=== PATIENT | female | born 1945 | race Caucasian/White ===

== ENCOUNTER 2023-05-05 20:38 | Emergency (ER) | payer MEDICARE, OTHER ==
[2023-05-05 21:43] LABS: CORONAVIRUS COVID-19 NAA NEGATIVE (NEGATIVE); INFLUENZA A NAA NEGATIVE (NEGATIVE); INFLUENZA B NAA NEGATIVE (NEGATIVE)
== END 2023-05-05 22:02 | disposition home or self-care (01) ==
LOC: VM.ED 20:38
DX: J06.9 Acute upper respiratory infection, unspecified (principal); I12.9 Hypertensive chronic kidney disease with stage 1 through stage 4 chronic kidney disease, or unspecified chronic kidney disease; N18.9 Chronic kidney disease, unspecified; Z20.822 Contact with and (suspected) exposure to COVID-19; Z87.891 Personal history of nicotine dependence; Z79.82 Long term (current) use of aspirin; Z88.8 Allergy status to other drugs, medicaments and biological substances
CPT/HCPCS: 0240U; 71046; 87651; 99284

== ENCOUNTER → 2024-06-22 | Day surgery (SDC) | payer MEDICARE, OTHER ==
[~2024-06-22] MED LIST: Propofol 200 MG/20 ML SDV ONE; fentaNYL 100 MCG/2 ML SDV ONE
[2024-06-22] MEDS: Lactated Ringers 1,000 ML IV SCH (10:06)
== END ==
LOC: VM.SDS 09:31
PROVIDERS: ATTEND Student in an Organized Health Care Education/Training Program
DX: R19.5 Other fecal abnormalities (principal); D12.2 Benign neoplasm of ascending colon; I12.9 Hypertensive chronic kidney disease with stage 1 through stage 4 chronic kidney disease, or unspecified chronic kidney disease; N18.32 Chronic kidney disease, stage 3b; F33.0 Major depressive disorder, recurrent, mild; E78.2 Mixed hyperlipidemia; Z79.899 Other long term (current) drug therapy; Z87.891 Personal history of nicotine dependence
CPT/HCPCS: 00811; 45385; 88305; 99100; J2704; J3010; J7120

== ENCOUNTER 2025-04-30 17:05 | Inpatient (IN) | payer MEDICARE, OTHER ==
[2025-04-30] MEDS ORDERED: Sodium Chloride 0.9% 10 ML Syringe FLUSH PRN (18:52)
[2025-04-30] MEDS ORDERED: Acetaminophen/HYDROcodone 325-5 MG Tab PO PRN (18:52)
[2025-04-30] MEDS ORDERED: Albuterol HFA 18 Gm Inhaler INH PRN (19:22)
[2025-04-30] MEDS: metroNIDAZOLE/Normal Saline 500 MG in Premix Bag 1 BAG IV SCH (19:56)
[2025-05-01] MEDS: Ondansetron 4 MG Tab.DIS PO PRN (03:51)
[2025-05-01 06:59] LABS: BASOPHILS ABSOLUTE AUTO 0.0 x10^3/uL (0.0-0.2); BASOPHILS PERCENT AUTO 0.2 % (0.2-1.2); EOSINOPHILS ABSOLUTE AUTO 0.1 x10^3/uL (0.0-0.5); EOSINOPHILS PERCENT AUTO 1.3 % (0.0-4.0); IMMATURE GRAN ABSOLUTE AUTO 0.01 x10^3/uL (0.00-0.07); IMMATURE GRAN PERCENT AUTO 0.10 % (0.00-0.43); LYMPHOCYTES ABSOLUTE AUTO 0.9 x10^3/uL (1.0-4.8); LYMPHOCYTES PERCENT AUTO 9.3 % (25.0-50.0); MONOCYTES ABSOLUTE AUTO 0.8 x10^3/uL (0.0-0.8); MONOCYTES PERCENT AUTO 8.5 % (2.0-11.0); NEUTROPHILS ABSOLUTE AUTO 8.0 x10^3/uL (1.8-7.7); NEUTROPHILS PERCENT AUTO 80.6 % (50.0-80.0); PLATELET COUNT,PLT 279 x10^3/uL (130-400); RED BLOOD CELL COUNT 3.72 x10^6/uL (4.00-5.50); WHITE BLOOD CELL COUNT,WBC 9.9 x10^3/uL (4.0-10.0)
[2025-05-01 07:22] LABS: A/G RATIO 0.64; ALANINE AMINOTRANSFERASE,ALT 8.0 U/L (14-59); ASPARTATE AMNIOTRANSFERASE,AST 16.0 U/L (15-37); BILIRUBIN TOTAL 0.7 mg/dL (0.2-1.0); BLOOD UREA NITROGEN,BUN 27.0 mg/dL (7-18); CARBON DIOXIDE,CO2 27.0 mmol/L (21-32); CHLORIDE,CL 101.0 mmol/L (98-107); CREATININE 1.3 mg/dL (0.55-1.02); EST CRCL DRUG DOSING (CG) 26.03 mL/min; GLUCOSE RANDOM 74.0 mg/dL (70-99); POTASSIUM,K 3.3 mmol/L (3.5-5.1); PROTEIN TOTAL,TP 5.9 g/dL (6.4-8.2); SODIUM,NA 136.0 mmol/L (136-145)
[2025-05-01 07:24] LABS: ESTIMATED GFR 42.0 mL/min (>=60)
[2025-05-01] MEDS: Potassium Chloride 10 MEQ Tab.ER PO ONE (09:34)
[2025-05-01] MEDS: Cholecalciferol (Vitamin D3) 25 MCG Tab PO SCH (09:35)
[2025-05-02 06:45] LABS: BASOPHILS ABSOLUTE AUTO 0.0 x10^3/uL (0.0-0.2); BASOPHILS PERCENT AUTO 0.3 % (0.2-1.2); EOSINOPHILS ABSOLUTE AUTO 0.4 x10^3/uL (0.0-0.5); EOSINOPHILS PERCENT AUTO 6.2 % (0.0-4.0); IMMATURE GRAN ABSOLUTE AUTO 0.01 x10^3/uL (0.00-0.07); IMMATURE GRAN PERCENT AUTO 0.20 % (0.00-0.43); LYMPHOCYTES ABSOLUTE AUTO 1.0 x10^3/uL (1.0-4.8); LYMPHOCYTES PERCENT AUTO 15.4 % (25.0-50.0); MONOCYTES ABSOLUTE AUTO 0.7 x10^3/uL (0.0-0.8); MONOCYTES PERCENT AUTO 11.0 % (2.0-11.0); NEUTROPHILS ABSOLUTE AUTO 4.2 x10^3/uL (1.8-7.7); NEUTROPHILS PERCENT AUTO 66.9 % (50.0-80.0); PLATELET COUNT,PLT 267 x10^3/uL (130-400); RED BLOOD CELL COUNT 3.46 x10^6/uL (4.00-5.50); WHITE BLOOD CELL COUNT,WBC 6.3 x10^3/uL (4.0-10.0)
[2025-05-02 06:59] LABS: BLOOD UREA NITROGEN,BUN 13.0 mg/dL (7-18); CARBON DIOXIDE,CO2 24.0 mmol/L (21-32); CHLORIDE,CL 108.0 mmol/L (98-107); CREATININE 1.0 mg/dL (0.55-1.02); EST CRCL DRUG DOSING (CG) 33.84 mL/min; GLUCOSE RANDOM 66.0 mg/dL (70-99); POTASSIUM,K 3.7 mmol/L (3.5-5.1); SODIUM,NA 140.0 mmol/L (136-145)
[2025-05-02 07:02] LABS: ESTIMATED GFR 58.0 mL/min (>=60)
[2025-05-02] MEDS ORDERED: Iopamidol 612 MG/ML 100 ML Bottle IVPUSH ONE ×2 (14:52)
[2025-05-02] MEDS: Iopamidol 755 Mg/ML 100 ML Bottle IVPUSH ONE ×2 (15:22)
[2025-05-02] MEDS: Iopamidol 612 MG/ML 100 ML Bottle IVPUSH ONE ×2 (16:08)
[2025-05-03 06:36] LABS: BASOPHILS ABSOLUTE AUTO 0.0 x10^3/uL (0.0-0.2); BASOPHILS PERCENT AUTO 0.3 % (0.2-1.2); EOSINOPHILS ABSOLUTE AUTO 0.4 x10^3/uL (0.0-0.5); EOSINOPHILS PERCENT AUTO 7.4 % (0.0-4.0); IMMATURE GRAN ABSOLUTE AUTO 0.01 x10^3/uL (0.00-0.07); IMMATURE GRAN PERCENT AUTO 0.20 % (0.00-0.43); LYMPHOCYTES ABSOLUTE AUTO 1.0 x10^3/uL (1.0-4.8); LYMPHOCYTES PERCENT AUTO 16.2 % (25.0-50.0); MONOCYTES ABSOLUTE AUTO 0.7 x10^3/uL (0.0-0.8); MONOCYTES PERCENT AUTO 11.9 % (2.0-11.0); NEUTROPHILS ABSOLUTE AUTO 3.8 x10^3/uL (1.8-7.7); NEUTROPHILS PERCENT AUTO 64.0 % (50.0-80.0); PLATELET COUNT,PLT 301 x10^3/uL (130-400); RED BLOOD CELL COUNT 3.75 x10^6/uL (4.00-5.50); WHITE BLOOD CELL COUNT,WBC 6.0 x10^3/uL (4.0-10.0)
[2025-05-03 06:56] LABS: A/G RATIO 0.6; ALANINE AMINOTRANSFERASE,ALT 9.0 U/L (14-59); ASPARTATE AMNIOTRANSFERASE,AST 16.0 U/L (15-37); BILIRUBIN TOTAL 0.4 mg/dL (0.2-1.0); BLOOD UREA NITROGEN,BUN 7.0 mg/dL (7-18); CARBON DIOXIDE,CO2 30.0 mmol/L (21-32); CHLORIDE,CL 106.0 mmol/L (98-107); CREATININE 0.9 mg/dL (0.55-1.02); EST CRCL DRUG DOSING (CG) 37.6 mL/min; ESTIMATED GFR 66.0 mL/min (>=60); GLUCOSE RANDOM 93.0 mg/dL (70-99); POTASSIUM,K 3.9 mmol/L (3.5-5.1); PROTEIN TOTAL,TP 5.6 g/dL (6.4-8.2); SODIUM,NA 141.0 mmol/L (136-145)
[2025-05-03] MEDS: Furosemide 20 MG/2 ML VIAL IV ONE (09:20)
[2025-05-03] MEDS: Heparin Sodium 5,000 Units/ML Vial SUBCUT SCH (17:59)
[2025-05-04 08:11] LABS: BASOPHILS ABSOLUTE AUTO 0.0 x10^3/uL (0.0-0.2); BASOPHILS PERCENT AUTO 0.4 % (0.2-1.2); EOSINOPHILS ABSOLUTE AUTO 0.4 x10^3/uL (0.0-0.5); EOSINOPHILS PERCENT AUTO 5.1 % (0.0-4.0); IMMATURE GRAN ABSOLUTE AUTO 0.02 x10^3/uL (0.00-0.07); IMMATURE GRAN PERCENT AUTO 0.30 % (0.00-0.43); LYMPHOCYTES ABSOLUTE AUTO 1.2 x10^3/uL (1.0-4.8); LYMPHOCYTES PERCENT AUTO 17.1 % (25.0-50.0); MONOCYTES ABSOLUTE AUTO 0.8 x10^3/uL (0.0-0.8); MONOCYTES PERCENT AUTO 11.1 % (2.0-11.0); NEUTROPHILS ABSOLUTE AUTO 4.6 x10^3/uL (1.8-7.7); NEUTROPHILS PERCENT AUTO 66.0 % (50.0-80.0); PLATELET COUNT,PLT 331 x10^3/uL (130-400); RED BLOOD CELL COUNT 4.10 x10^6/uL (4.00-5.50); WHITE BLOOD CELL COUNT,WBC 7.0 x10^3/uL (4.0-10.0)
[2025-05-04 08:39] LABS: A/G RATIO 0.68; ALANINE AMINOTRANSFERASE,ALT 14.0 U/L (14-59); ASPARTATE AMNIOTRANSFERASE,AST 21.0 U/L (15-37); BILIRUBIN TOTAL 0.6 mg/dL (0.2-1.0); BLOOD UREA NITROGEN,BUN 6.0 mg/dL (7-18); CARBON DIOXIDE,CO2 31.0 mmol/L (21-32); CHLORIDE,CL 103.0 mmol/L (98-107); CREATININE 0.9 mg/dL (0.55-1.02); EST CRCL DRUG DOSING (CG) 37.6 mL/min; GLUCOSE RANDOM 91.0 mg/dL (70-99); POTASSIUM,K 3.1 mmol/L (3.5-5.1); PROTEIN TOTAL,TP 6.2 g/dL (6.4-8.2); SODIUM,NA 141.0 mmol/L (136-145)
[2025-05-04 08:42] LABS: ESTIMATED GFR 66.0 mL/min (>=60)
[2025-05-04] MEDS: Magnesium Sulfate 2 GM/50 mL 2 GM in Premix Bag 1 BAG IV ONE (11:15)
[2025-05-04] MEDS: Amoxicillin/Clavulanate K 500-125 MG Tab PO SCH (11:15)
[2025-05-04] MEDS: Potassium Chloride 10 MEQ Tab.ER PO ONE (11:18)
[2025-05-05 08:28] LABS: BLOOD UREA NITROGEN,BUN 7.0 mg/dL (7-18); CARBON DIOXIDE,CO2 27.0 mmol/L (21-32); CHLORIDE,CL 101.0 mmol/L (98-107); CREATININE 0.8 mg/dL (0.55-1.02); EST CRCL DRUG DOSING (CG) 42.3 mL/min; GLUCOSE RANDOM 79.0 mg/dL (70-99); PHOSPHORUS 3.0 mg/dL (2.6-4.7); POTASSIUM,K 3.4 mmol/L (3.5-5.1); SODIUM,NA 138.0 mmol/L (136-145)
[2025-05-05 08:39] LABS: ESTIMATED GFR 76.0 mL/min (>=60)
[2025-05-05] MEDS: Potassium Chloride 10 MEQ Tab.ER PO ONE (10:45)
[2025-05-05] MEDS: Venlafaxine 37.5 MG Cap.ER PO SCH (10:45)
[2025-05-05] MEDS: Furosemide 20 MG/2 ML VIAL IV SCH (10:46)
== END 2025-05-06 17:00 | disposition home or self-care (01) | DRG 683 ==
LOC: VM.MS 17:05
PROVIDERS: ADMIT Nurse Practitioner Family; ATTEND Nurse Practitioner Family
DX: N17.9 Acute kidney failure, unspecified (principal); D62 Acute posthemorrhagic anemia; I50.30 Unspecified diastolic (congestive) heart failure; E44.0 Moderate protein-calorie malnutrition; K52.9 Noninfective gastroenteritis and colitis, unspecified; E86.0 Dehydration; M81.0 Age-related osteoporosis without current pathological fracture; N18.31 Chronic kidney disease, stage 3a; F32.A Depression, unspecified; H26.9 Unspecified cataract; E78.00 Pure hypercholesterolemia, unspecified; M19.90 Unspecified osteoarthritis, unspecified site; E66.9 Obesity, unspecified; F41.9 Anxiety disorder, unspecified; D72.829 Elevated white blood cell count, unspecified; I71.43 Infrarenal abdominal aortic aneurysm, without rupture; E16.2 Hypoglycemia, unspecified; J38.00 Paralysis of vocal cords and larynx, unspecified; R91.8 Other nonspecific abnormal finding of lung field; E83.42 Hypomagnesemia; E87.6 Hypokalemia; Z87.891 Personal history of nicotine dependence; Z88.6 Allergy status to analgesic agent; Z88.8 Allergy status to other drugs, medicaments and biological substances; Z79.51 Long term (current) use of inhaled steroids; Z79.899 Other long term (current) drug therapy; Z68.28 Body mass index [BMI] 28.0-28.9, adult
CPT/HCPCS: 36415; 70491; 71045; 71046; 71260; 74176; 80048; 80053; 80069; 82947; 83735; 83880; 85025; 86140; 87045; 87046; 87493; 94640; 97116-GP; 97161-GP; 97165-GO; A9270-GY; J0696; J1644; J1836; J1938; J3475; J7030; Q9967

== ENCOUNTER 2025-05-13 08:34 | Emergency (ER) | payer MEDICARE, OTHER ==
[2025-05-13] MEDS ORDERED: Sodium Chloride 0.9% 10 ML Syringe FLUSH PRN (09:03)
[2025-05-13 09:19] LABS: BASOPHILS ABSOLUTE AUTO 0.0 x10^3/uL (0.0-0.2); BASOPHILS PERCENT AUTO 0.1 % (0.2-1.2); EOSINOPHILS ABSOLUTE AUTO 0.2 x10^3/uL (0.0-0.5); EOSINOPHILS PERCENT AUTO 1.6 % (0.0-4.0); IMMATURE GRAN ABSOLUTE AUTO 0.03 x10^3/uL (0.00-0.07); IMMATURE GRAN PERCENT AUTO 0.20 % (0.00-0.43); LYMPHOCYTES ABSOLUTE AUTO 1.1 x10^3/uL (1.0-4.8); LYMPHOCYTES PERCENT AUTO 7.2 % (25.0-50.0); MONOCYTES ABSOLUTE AUTO 1.0 x10^3/uL (0.0-0.8); MONOCYTES PERCENT AUTO 6.4 % (2.0-11.0); NEUTROPHILS ABSOLUTE AUTO 12.5 x10^3/uL (1.8-7.7); NEUTROPHILS PERCENT AUTO 84.5 % (50.0-80.0); PLATELET COUNT,PLT 505 x10^3/uL (130-400); RED BLOOD CELL COUNT 4.47 x10^6/uL (4.00-5.50); WHITE BLOOD CELL COUNT,WBC 14.8 x10^3/uL (4.0-10.0)
[2025-05-13] MEDS: Lactated Ringers 1,000 ML IV ONE (09:36)
[2025-05-13] MEDS: Ondansetron 4 MG/2 ML SDV IVPUSH ONE (09:36)
[2025-05-13 09:52] LABS: A/G RATIO 0.60; ALANINE AMINOTRANSFERASE,ALT 19 U/L (14-59); ASPARTATE AMNIOTRANSFERASE,AST 25 U/L (15-37); BILIRUBIN TOTAL 0.6 mg/dL (0.2-1.0); BLOOD UREA NITROGEN,BUN 11 mg/dL (7-18); CARBON DIOXIDE,CO2 26 mmol/L (21-32); CHLORIDE,CL 98 mmol/L (98-107); CREATINE KINASE,CK 31 U/L (26-192); CREATININE 1.1 mg/dL (0.55-1.02); GLUCOSE RANDOM 96 mg/dL (70-99); POTASSIUM,K 3.6 mmol/L (3.5-5.1); PROTEIN TOTAL,TP 8.0 g/dL (6.4-8.2); SODIUM,NA 139 mmol/L (136-145)
[2025-05-13 09:53] LABS: ESTIMATED GFR 52 mL/min (>=60)
== END 2025-05-13 10:02 | disposition home or self-care (01) ==
LOC: VM.ED 08:34
DX: E86.0 Dehydration (principal); R11.0 Nausea; I12.9 Hypertensive chronic kidney disease with stage 1 through stage 4 chronic kidney disease, or unspecified chronic kidney disease; E78.00 Pure hypercholesterolemia, unspecified; E66.9 Obesity, unspecified; N18.9 Chronic kidney disease, unspecified; M19.90 Unspecified osteoarthritis, unspecified site; Z79.899 Other long term (current) drug therapy; Z88.6 Allergy status to analgesic agent; Z88.8 Allergy status to other drugs, medicaments and biological substances
CPT/HCPCS: 80053; 82550; 83605; 83690; 83735; 84484; 85025; 86140; 96361; 96374; 99284; 99284-25; J2405; J7120

== ENCOUNTER 2025-05-27 16:26 | Inpatient (IN) | payer MEDICARE, OTHER ==
[2025-05-27] MEDS ORDERED: Ondansetron 4 MG Tab.DIS PO PRN (16:46)
[2025-05-28] MEDS: Cholecalciferol (Vitamin D3) 25 MCG Tab PO SCH (08:38)
[2025-05-28] MEDS ORDERED: Venlafaxine 75 MG Cap.ER PO SCH (09:45)
[2025-05-28] MEDS: Venlafaxine 75 MG Cap.ER PO SCH (10:02)
[2025-05-30 06:48] LABS: BASOPHILS ABSOLUTE AUTO 0.0 x10^3/uL (0.0-0.2); BASOPHILS PERCENT AUTO 0.5 % (0.2-1.2); EOSINOPHILS ABSOLUTE AUTO 0.4 x10^3/uL (0.0-0.5); EOSINOPHILS PERCENT AUTO 6.0 % (0.0-4.0); IMMATURE GRAN ABSOLUTE AUTO 0.02 x10^3/uL (0.00-0.07); IMMATURE GRAN PERCENT AUTO 0.30 % (0.00-0.43); LYMPHOCYTES ABSOLUTE AUTO 1.0 x10^3/uL (1.0-4.8); LYMPHOCYTES PERCENT AUTO 13.1 % (25.0-50.0); MONOCYTES ABSOLUTE AUTO 0.6 x10^3/uL (0.0-0.8); MONOCYTES PERCENT AUTO 8.3 % (2.0-11.0); NEUTROPHILS ABSOLUTE AUTO 5.3 x10^3/uL (1.8-7.7); NEUTROPHILS PERCENT AUTO 71.8 % (50.0-80.0); PLATELET COUNT,PLT 342 x10^3/uL (130-400); RED BLOOD CELL COUNT 3.89 x10^6/uL (4.00-5.50); WHITE BLOOD CELL COUNT,WBC 7.4 x10^3/uL (4.0-10.0)
[2025-05-30 07:06] LABS: BLOOD UREA NITROGEN,BUN 6.0 mg/dL (7-18); CARBON DIOXIDE,CO2 28.0 mmol/L (21-32); CHLORIDE,CL 102.0 mmol/L (98-107); CREATININE 0.7 mg/dL (0.55-1.02); EST CRCL DRUG DOSING (CG) 48.34 mL/min; GLUCOSE RANDOM 81.0 mg/dL (70-99); POTASSIUM,K 3.3 mmol/L (3.5-5.1); SODIUM,NA 141.0 mmol/L (136-145)
[2025-05-30 07:07] LABS: ESTIMATED GFR 89.0 mL/min (>=60)
[2025-05-30] MEDS: Potassium Chloride 10 MEQ Tab.ER PO SCH (08:29)
[2025-05-31] MEDS: Potassium Bicarbonate 25 MEQ Tab.EFF PO SCH (09:25)
[2025-06-01] MEDS: Lactobacillus Rhamnosus GG (Probiotic) Cap PO SCH (08:43)
[2025-06-01] MEDS: Potassium Chloride 10 MEQ Tab.ER PO SCH (08:44)
[2025-06-03 06:58] LABS: BLOOD UREA NITROGEN,BUN 9.0 mg/dL (7-18); CARBON DIOXIDE,CO2 27.0 mmol/L (21-32); CHLORIDE,CL 101.0 mmol/L (98-107); CREATININE 1.0 mg/dL (0.55-1.02); EST CRCL DRUG DOSING (CG) 33.84 mL/min; GLUCOSE RANDOM 75.0 mg/dL (70-99); POTASSIUM,K 4.0 mmol/L (3.5-5.1); SODIUM,NA 138.0 mmol/L (136-145)
[2025-06-03 07:02] LABS: ESTIMATED GFR 58.0 mL/min (>=60)
[2025-06-03 07:07] LABS: BASOPHILS ABSOLUTE AUTO 0.0 x10^3/uL (0.0-0.2); BASOPHILS PERCENT AUTO 0.4 % (0.2-1.2); EOSINOPHILS ABSOLUTE AUTO 0.6 x10^3/uL (0.0-0.5); EOSINOPHILS PERCENT AUTO 7.7 % (0.0-4.0); IMMATURE GRAN ABSOLUTE AUTO 0.01 x10^3/uL (0.00-0.07); IMMATURE GRAN PERCENT AUTO 0.10 % (0.00-0.43); LYMPHOCYTES ABSOLUTE AUTO 1.2 x10^3/uL (1.0-4.8); LYMPHOCYTES PERCENT AUTO 16.2 % (25.0-50.0); MONOCYTES ABSOLUTE AUTO 0.6 x10^3/uL (0.0-0.8); MONOCYTES PERCENT AUTO 8.7 % (2.0-11.0); NEUTROPHILS ABSOLUTE AUTO 4.8 x10^3/uL (1.8-7.7); NEUTROPHILS PERCENT AUTO 66.9 % (50.0-80.0); PLATELET COUNT,PLT 371 x10^3/uL (130-400); RED BLOOD CELL COUNT 4.36 x10^6/uL (4.00-5.50); WHITE BLOOD CELL COUNT,WBC 7.1 x10^3/uL (4.0-10.0)
== END 2025-06-03 10:20 | disposition home or self-care (01) | DRG 949 ==
LOC: VM.MS 16:40
PROVIDERS: ADMIT Internal Medicine; ATTEND Internal Medicine
DX: S70.02XD Contusion of left hip, subsequent encounter (principal); C34.12 Malignant neoplasm of upper lobe, left bronchus or lung; C78.1 Secondary malignant neoplasm of mediastinum; C77.9 Secondary and unspecified malignant neoplasm of lymph node, unspecified; C79.51 Secondary malignant neoplasm of bone; C79.71 Secondary malignant neoplasm of right adrenal gland; J91.0 Malignant pleural effusion; E46 Unspecified protein-calorie malnutrition; R53.1 Weakness; I10 Essential (primary) hypertension; D63.0 Anemia in neoplastic disease; F43.22 Adjustment disorder with anxiety; F32.A Depression, unspecified; F51.04 Psychophysiologic insomnia; E87.6 Hypokalemia; Z79.1 Long term (current) use of non-steroidal anti-inflammatories (NSAID); Z79.2 Long term (current) use of antibiotics; Z79.899 Other long term (current) drug therapy; S27.431 Laceration of bronchus, unilateral; Z68.25 Body mass index [BMI] 25.0-25.9, adult; W18.30XD Fall on same level, unspecified, subsequent encounter
CPT/HCPCS: 36415; 72192; 80048; 82947; 83735; 85025; 97110-GO; 97110-GP; 97116-GP; 97162-GP; 97165-GO; 97535-GO; A9270-GY

== ENCOUNTER 2025-06-16 10:44 | Emergency (ER) | payer MEDICARE, OTHER ==
[2025-06-16] MEDS: Take Home: traMADol 50 MG, 4 Tab Pack PO ONE (11:15)
== END 2025-06-16 11:34 | disposition home or self-care (01) ==
LOC: VM.ED 10:44
DX: M54.50 Low back pain, unspecified (principal); I12.9 Hypertensive chronic kidney disease with stage 1 through stage 4 chronic kidney disease, or unspecified chronic kidney disease; N18.9 Chronic kidney disease, unspecified; Z88.6 Allergy status to analgesic agent; Z88.8 Allergy status to other drugs, medicaments and biological substances; Z79.899 Other long term (current) drug therapy
CPT/HCPCS: 96372; 99283; A9270; J2270